=== PATIENT | male | born 1995 | race African-American/Black ===

== ENCOUNTER 2018-07-02 10:52 | Emergency (ER) | payer OTHER ==
[~2018-07-02] VITALS: Ht 177.8 cm; Wt 68.0 kg
[~2018-07-02 10:52] MED LIST: ALBU8.5H3 IH
[2018-07-02 13:22] VITALS: BP 115/86
== END 2018-07-02 13:32 | disposition home or self-care (01) ==
LOC: EMS 10:53
DX: S60.221A Contusion of right hand, initial encounter (principal); J45.909 Unspecified asthma, uncomplicated; W22.8XXA Striking against or struck by other objects, initial encounter; Y93.01 Activity, walking, marching and hiking; Y92.89 Other specified places as the place of occurrence of the external cause; Y99.8 Other external cause status